=== PATIENT | female | born 1995 | race Caucasian/White ===

== ENCOUNTER 2018-07-08 15:43 | Emergency (ER) | payer OTHER ==
[2018-07-08 15:51] VITALS: BP 114/62; PULSE 71; TEMP 98.4; BMI 29.8
[2018-07-08] MEDS ORDERED: methylPREDNISolone NA SUCC 125 MG/2 ML VIAL IVPB ONE (16:23)
[2018-07-08] MEDS ORDERED: FAMOTIDINE 20 MG/50 ML IVPB 20 MG/50 ML MG IVPB ONE ×2 (16:23→16:47)
[2018-07-08] MEDS ORDERED: methylPREDNISolone NA SUCC 125 MG/2 ML VIAL ONE (16:25)
--- NOTE | 2018-07-08 16:29 | PDOC ---
History of Present Illness <Christi Flannery - Last Filed: 07/08/18 17:40> - History of Present Illness Initial Comments: 07/08/18 16:32 The patient is a 23 year old female with no signficant PMH who presents to the ER for evaluation of a possible allergic reaction. Patient states she washing her dog and cutting its hair at 2 PM, when she began to notice swelling to her face and itchiness to her throat. Patient reports eating cookies at 12PM today, but states she has eaten those same cookies before and has not had any problems in the past. Patient denies any difficulty breathing, tongue or lip swelling, or noticed any changes in her voice. Patient reports taking 2 benadryls today with mild improvement of her symptoms. Patient denies using any new soaps, eating new foods, and denies any known allergies. Patient notes she does get hives in the summer time and was told to see an electronic engineering technician to be evaluated but has not made an appointment to be seen. The patient denies chest pain, shortness of breath, headache and dizziness. Denies fever, chills, nausea, vomit, diarrhea and constipation. Denies dysuria, frequency, urgency and hematuria. Allergies: NKA Past surgical history: None reported. Social history: No reported alcohol, drug or cigarette use. <Burak Ramirez - Last Filed: 07/08/18 17:56> - General Chief Complaint: Allergic Reaction Stated Complaint: allergy reaction Time Seen by Provider: 07/08/18 16:18 Past History <Christi Flannery - Last Filed: 07/08/18 17:40> - Past Medical History Anemia: Yes Asthma: No Cancer: No Cardiac Disorders: No CVA: No COPD: No CHF: No Dementia: No Diabetes: No GI Disorders: Yes (CONSTIPATION) Disorders: No HTN: No Hypercholesterolemia: No Liver Disease: No Seizures: No Thyroid Disease: No - Surgical History Abdominal Surgery: No Appendectomy: No Cardiac Surgery: No Cholecystectomy: No Lung Surgery: No Neurologic Surgery: No Orthopedic Surgery: Yes (ORIF R ANKLE) - Immunization History Immunization Up to Date: No - Suicide/Smoking/Psychosocial Hx Smoking History: Never smoked Have you smoked in the past 12 months: No Information on smoking cessation initiated: No Hx Alcohol Use: No Drug/Substance Use Hx: No Substance Use Type: None Hx Substance Use Treatment: No <Burak Ramirez - Last Filed: 07/08/18 17:56> - Past Medical History Allergies/Adverse Reactions: Allergies Allergy/AdvReac Type Severity Reaction Status Date / Time No Known Drug Allergies Allergy Verified 10/01/12 14:03 Home Medications: Ambulatory Orders Diphenhydramine [Benadryl -] 50 mg PO TID PRN #24 capsule 07/08/18 EPINEPHrine (EPI-PEN 0.3MG) [Epipen 0.3MG -] 0.3 mg IM ASDIR #2 pens 07/08/18 Prednisone [Prednisone 50 MG TABLETS] 50 mg PO DAILY #2 tablet 07/08/18 Review of Systems - Review of Systems Comments:: 07/08/18 16:33 GENERAL/CONSTITUTIONAL: No fever or chills. No weakness. HEAD, EYES, EARS, NOSE AND THROAT: No change in vision. No ear pain or discharge. No sore throat. CARDIOVASCULAR: No chest pain, no shortness of breath, no loss of consciousness RESPIRATORY: No cough, wheezing, or hemoptysis. GASTROINTESTINAL: No nausea, vomiting, diarrhea or constipation. GENITOURINARY: No dysuria, frequency, or change in urination. MUSCULOSKELETAL: No joint or muscle swelling or pain. No neck or back pain. SKIN: No rash NEUROLOGIC: No vertigo, no change in strength/sensation. ENDOCRINE: No increased thirst. No abnormal weight change. HEMATOLOGIC/LYMPHATIC: No anemia, easy bleeding, or history of blood clots. ALLERGIC/IMMUNOLOGIC: (+) facial swelling (+) throat itchiness. <Burak Ramirez - Last Filed: 07/08/18 17:56> *Physical Exam - Vital Signs Last Vital Signs Temp Pulse Resp BP Pulse Ox 98.4 F 71 20 114/62 98 07/08/18 15:46 07/08/18 15:46 07/08/18 15:46 07/08/18 15:46 07/08/18 15:46 <Christi Flannery - Last Filed: 07/08/18 17:40> - Vital Signs Last Vital Signs Temp Pulse Resp BP Pulse Ox 98.4 F 71 20 114/62 98 07/08/18 15:46 07/08/18 15:46 07/08/18 15:46 07/08/18 15:46 07/08/18 15:46 - Physical Exam Comments: 07/08/18 16:33 GENERAL: Awake, alert, and fully oriented, in no acute distress. HEAD: No signs of trauma EYES: PERRLA, EOMI, sclera anicteric, conjunctiva clear ENT: Auricles normal inspection, hearing grossly normal, nares patent, oropharynx clear without exudates. Moist mucosa NECK: Nontender, no stepoffs, Normal ROM, supple, no lymphadenopathy, JVD, or masses LUNGS: Breath sounds equal, clear to auscultation bilaterally. No wheezes, and no crackles, no stridor HEART: Regular rate and rhythm, normal S1 and S2, no murmurs, rubs or gallops ABDOMEN: Soft, nontender, normoactive bowel sounds. No guarding, no rebound. No masses EXTREMITIES: Normal range of motion, no edema. No clubbing or cyanosis. No cords, erythema, or tenderness NEUROLOGICAL: Cranial nerves II through XII intact. 5/5 strength and sensation in all extremities, Normal speech, normal gait, normal cerebellar function SKIN: + mild erythema and swelling to cheeks and forehead, no tongue or lip swelling <Ou,Burak - Last Filed: 07/08/18 17:56> Moderate Sedation - Procedure Monitoring Vital Signs: Procedure Monitoring Vital Signs Temperature 98.4 F 07/08/18 15:46 Pulse Rate 71 07/08/18 15:46 Respiratory Rate 20 07/08/18 15:46 Blood Pressure 114/62 07/08/18 15:46 O2 Sat by Pulse Oximetry (%) 98 07/08/18 15:46 <Christi Flannery - Last Filed: 07/08/18 17:40> - Procedure Monitoring Vital Signs: Procedure Monitoring Vital Signs Temperature 98.4 F 07/08/18 15:46 Pulse Rate 71 07/08/18 15:46 Respiratory Rate 20 07/08/18 15:46 Blood Pressure 114/62 07/08/18 15:46 O2 Sat by Pulse Oximetry (%) 98 07/08/18 15:46 <Ou,Burak - Last Filed: 07/08/18 17:56> ED Treatment Course - Medications Given in the ED: ED Medications Discontinued Medications Generic Name Dose Route Start Last Admin Trade Name Freq PRN Reason Stop Dose Admin Diphenhydramine HCl 50 mg 07/08/18 16:23 07/08/18 16:46 Benadryl Injection - IVPUSH 07/08/18 16:24 50 mg ONCE ONE Administration Famotidine/Sodium Chloride 20 mg in 50 mls @ 100 mls/hr 07/08/18 16:23 16:53 Pepcid 20 Mg Premixed Ivpb - IVPB 07/08/18 16:52 100 mls/hr ONCE ONE Administration Methylprednisolone Sodium Succinate 125 mg 07/08/18 16:23 07/08/18 16:46 Solu-Medrol - IVPB 07/08/18 16:24 125 mg ONCE ONE Administration <Christi Flannery - Last Filed: 07/08/18 17:40> Medical Decision Making - Medical Decision Making 07/08/18 16:24 23 F with mild allergic reaction while cutting dog's hair. Pt with no s/s of airway involvement. Clear lungs without wheezing, no tongue or lip swelling. - Benadryl - Steroids - Monitor in ED 07/08/18 17:55 Pt reassessed - now has complete resolution of rash. Pt is well appearing, with normal vitals. Clinically stable for DC at this time. I discussed the physical exam findings, ancillary test results and final diagnoses with the patient. I answered all of the patient's questions. The patient was satisfied with the care received and felt comfortable with the discharge plan and treatment plan. The patient agrees to follow up with the primary care physician within 24-72 hours. <Burak Ramirez - Last Filed: 07/08/18 17:56> *DC/Admit/Observation/Transfer - Attestations Scribe Attestion: 07/08/18 17:40 Documentation prepared by Christi Flannery, acting as medical staff services manager for Burak Ramirez MD. <Christi Flannery - Last Filed: 07/08/18 17:40> - Attestations Physician Attestion: 07/08/18 16:43 I, Dr. Burak Ramirez MD, attest that this document has been prepared under my direction and personally reviewed by me in its entirety. I further attest, that it accurately reflects all work, treatment, procedures and medical decision -making performed by me. <Burak Ramirez - Last Filed: 07/08/18 17:56> Diagnosis at time of Disposition: Allergic reaction - Discharge Dispostion Disposition: HOME Condition at time of disposition: Stable - Prescriptions Prescriptions: Diphenhydramine [Benadryl -] 50 mg PO TID PRN #24 capsule PRN Reason: For Itching EPINEPHrine (EPI-PEN 0.3MG) [Epipen 0.3MG -] 0.3 mg IM ASDIR #2 pens Prednisone [Prednisone 50 MG TABLETS] 50 mg PO DAILY #2 tablet - Referrals Referrals: Ngoc Patel MD [Staff Physician] - - Patient Instructions Printed Discharge Instructions: DI for General Allergic Reactions Additional Instructions: You had an allergic reaction today, though we are unsure what you're allergic to. Make an appointment with an electronic engineering technician to have testing done to determine what you 're allergic to. Take benadryl every 8 hours as needed for rash or itching. Take one prednisone once a day starting tomorrow for 2 days. Carry your Epi-pen with you at all times in the event that you have a severe allergic reaction. If you experience a severe allergic reaction with tongue swelling, difficulty breathing or swallowing, changes in your voice, or any other concerning symptoms , return to the ER immediately. - Post Discharge Activity Forms/Work/School Notes: Back to Work
== END 2018-07-08 18:04 | disposition home or self-care (01) ==
LOC: JER 15:43
PROC: 3E033GC Introduction of Other Therapeutic Substance into Peripheral Vein, Percutaneous Approach (ICD-10-PCS; principal; 2018-07-08)
DX: T78.40XA Allergy, unspecified, initial encounter (principal)
CPT/HCPCS: 99282-25